=== PATIENT | female | born 2000 | race Hispanic/Latino ===

== ENCOUNTER 2021-05-27 22:47 | Emergency (ER) | payer OTHER, SELFPAY ==
--- NOTE | ~2021-05-27 | CT_ITS ---
EXAMINATION: CTA chest PE protocol DATE: 05/28/2021 00:54 INDICATION: Chest pain TECHNIQUE: Computed tomography angiography (CTA) of the chest was performed with 100 mL Omnipaque-350 intravenous contrast timed to evaluate the pulmonary arteries. Coronal maximum intensity projection 3D-reconstructions were created by the technologist. The dose-length product (DLP) was 225.44 mGy-cm. Automated exposure control and iterative reconstruction technique were employed. COMPARISON: None. FINDINGS: The pulmonary arteries are well-opacified. No pulmonary embolism is identified. The lungs a re free of acute opacities. There is no pleural effusion or pneumothorax. No pathologically enlarged thoracic lymph nodes are identified. The heart size is normal. There is possible myocardial thinning at the left ventricular apex. The visualized osseous structures are unremarkable. IMPRESSION: 1. No pulmonary embolism or acute cardiopulmonary abnormality. 2. Possible myocardial thinning at the left ventricular apex although the study is not gated for eval uation of the heart. Reviewed, dictated and finalized at location A. IMINER IMPRESSION: 1. No pulmonary embolism or acute cardiopulmonary abnormality. 2. Possible myocardial thinning at the left ventricular apex although the study is not gated for evaluation of the heart.
--- NOTE | ~2021-05-27 | XR_ITS ---
EXAMINATION: XR chest 2V DATE: 05/27/2021 23:27 INDICATION: Cough. TECHNIQUE: Frontal and lateral views of the chest were obtained. COMPARISON: None. FINDINGS: The chest demonstrates clear lungs without pneumonia, pleural effusion, or pneumothorax. Th e heart size is normal. IMPRESSION: 1. No acute cardiopulmonary disease. Reviewed, dictated and finalized at location E. STER
[2021-05-27 22:49] VITALS: BP 150/93; PULSE 91; RESP 20; TEMP 36.8; O2SAT 100
--- NOTE | 2021-05-27 23:14 | ECG_ITS ---
Measurements Intervals [place] Rate: 75 P: 15 IN: 148 QRS: 72 QRSD: 77 T: 24 QT: 369 QTc: 415 Interpretive Statements SINUS RHYTHM NORMAL ECG Electronically Signed On 05-28-2021 6:38:22 HANDLE SEWER by Jose G Downing D.O.
--- NOTE | 2021-05-27 23:15 | ED.BACK ---
HPI - Back Pain/Injury General Chief Complaint: Back Pain/Injury <Saúl Villanueva MD - Last Filed: 05/27/21 23:31> Stated Complaint: sob <Saúl Villanueva MD - Last Filed: 05/27/21 23:31> Time Seen by Provider: 05/27/21 23:05 <Saúl Villanueva MD - Last Filed: 05/27/21 23:31> Source: patient <Saúl Villanueva MD - Last Filed: 05/27/21 23:31> Mode of arrival: ambulatory <Saúl Villanueva MD - Last Filed: 05/27/21 23:31> Limitations: no limitations <Saúl Villanueva MD - Last Filed: 05/27/21 23:31> History of Present Illness HPI Narrative: Patient is a 21-year-old female complaining of mid back pain, upper back pain, 8 out of 10, sharp, worse with deep breaths that started today. Patient states that she was short of breath earlier but now resolved. Patient denies any chest pain, abdominal pain, nausea, vomiting, diaphoresis, fever or chills. <Saúl Villanueva MD - Last Filed: 05/27/21 23:31> Related Data Allergies/Adverse Reactions: Allergies Allergy/AdvReac Type Severity Reaction Status Date / Time No Known Allergies Allergy Verified 05/27/21 22:52 <Saúl Villanueva MD - Last Filed: 05/27/21 23:31> Review of Systems Review of Systems: All systems reviewed & are unremarkable except as noted in HPI and below <Saúl Villanueva MD - Last Filed: 05/27/21 23:31> Constitutional: Constitutional: Denies body ache(s), Denies chills, Denies excessive sweating, Denies fatigue, Denies fever(s), Denies headache(s), Denies lethargy, Denies malaise, Denies weakness and Denies weight loss <Saúl Villanueva MD - Last Filed: 05/27/21 23:31> Eyes: Eyes: Denies blurry vision, Denies change in vision and Denies loss of vision <Saúl Villanueva MD - Last Filed: 05/27/21:31> ENT: Denies dizziness, Denies ear discharge, Denies headache(s), Denies lip swelling, Denies epistaxis, Denies nasal congestion, Denies neck pain, Denies throat swelling and Denies tongue swelling <Saúl Villanueva MD - Last Filed: 05/27/21 23:31> Cardiovascular: Cardiovascular: Denies chest pain, Denies chest pain at rest, Denies chest pain with activity, Denies diaphoresis, Denies rapid heart rate, Denies edema, Denies irregular heart rhythm, Denies lightheadedness, Denies palpitations, Denies dyspnea and Denies dyspnea on exertion <aSúl Villanueva MD - Last Filed: 05/27/21:31> Respiratory: Respiratory: Denies chest congestion, Denies cough, Denies hemoptysis, Denies dyspnea and Denies dyspnea on exertion <Saúl Villanueva MD - Last Filed: 05/27/21 23:31> Gastrointestinal: Gastrointestinal: Denies abdominal pain, Denies melena, Denies hematochezia, Denies diarrhea, Denies nausea, Denies vomiting and Denies hematemesis <Saúl Villanueva MD - Last Filed: 05/27/21 23:31> Musculoskeletal: Musculoskeletal: Denies abnormal gait, Denies deformity, Denies joint swelling, Denies limited range of motion, Denies neck pain and Denies numbness <Saúl Villanueva MD - Last Filed: 05/27/21 23:31> Neurologic: Denies Abnormal speech present, Denies abnormal gait, Denies confusion, Denies dizziness, Denies headache(s), Denies focal weakness, Denies loss of vision, Denies numbness, Denies Other visual disturbances, Denies Sensory deficit (Neuro) and Denies weakness <Saúl Villanueva MD - Last Filed: 05/27/21 23:31> Psychiatric: Psychiatric: Denies confusion, Denies depression, Denies auditory hallucinations, Denies homicidal ideation and Denies suicidal ideation <Saúl Villanueva MD - Last Filed: 05/27/21 23:31> Endocrine: Endocrine: Denies cold intolerance, Denies excessive sweating, Denies fatigue, Denies heat intolerance and Denies palpitations <Saúl Villanueva MD - Last Filed: 05/27/21 23:31> Hematologic/Lymphatic: Hematologic/Lymphatic: Denies easy bleeding and Denies easy bruising <Saúl Villanueva MD - Last Filed: 05/27/21 23:31> Allergic/Immunologic: Allergic/Immunologic: Denies l
[2021-05-27] MEDS: IBUPROFEN 400 MG TABLET 800 MG PO (23:46)
[2021-05-27] MEDS: ACETAMINOPHEN 325 MG TABLET 650 MG PO (23:47)
[2021-05-27 23:51] LABS: Basophils Absolute Auto 0.1 K/mm3 (0.0-0.1); Basophils Percent Auto 0.6 % (0.2-1.2); Eosinophils Absolute Auto 0.4 K/mm3 (0-0.3); Eosinophils Percent Auto 4.4 % (0-4.4); Hematocrit 38.2 % (37.0-47.0); Hemoglobin 12.6 g/dL (12.0-15.0); Immature Granulocyte Absolute 0.02 K/mm3 (0.00-0.031); Immature Granulocyte Percent A 0.3 % (0-0.5); Lymphocytes Absolute Auto 2.87 K/mm3 (0.9-3.2); Mean Corpuscular Hemoglobin 29.7 pg (26-34); Mean Corpuscular Volume 90.1 fl (80-100); Monocytes Absolute Auto 0.6 K/mm3 (0.1-0.6); Monocytes Percent Auto 7.1 % (2.6-8.5); Neutrophils Absolute Auto 4.1 K/mm3 (1.3-6.7); Neutrophils Percent Auto 51.6 % (45.5-73.1); Platelet Count Result 312 k/mm3 (150-375); Red Blood Count 4.24 M/mm3 (4.2-5.4); Red Cell Distribution Width 13.2 % (11.5-14.5)
[2021-05-28 00:11] LABS: Alanine Aminotransferase 24 U/L (4-35); Albumin Level 4.8 g/dL (3.5-5.1); Alkaline Phosphatase 73 U/L (38-126); Anion Gap 15 mmol/L (8-16); Aspartate Amino Transferase 41 U/L (14-36); Bilirubin,Total 0.3 mg/dL (0.2-1.3); Blood Urea Nitrogen 10 mg/dL (7-17); Calcium 9.2 mg/dL (8.4-10.2); Carbon Dioxide 23 mmol/L (22-30); Chloride 101 mmol/L (98-107); Estimated CRCL calculation 91 ml/min; Estimated Glomerular Filt Rate > 60; Glucose 92 mg/dL (65-110); Potassium 3.7 mmol/L (3.4-5.0); Sodium 139 mmol/L (137-145)
[2021-05-28 00:19] LABS: D Dimer 0.62 ug/mL (<0.48)
[2021-05-28 00:23] LABS: Troponin I < 0.012 ng/mL (0.000-0.034)
[2021-05-28 00:30] VITALS: BP 133/74; PULSE 72; RESP 16; O2SAT 100
== END 2021-05-28 02:45 | disposition home or self-care (01) ==
PROVIDERS: Emergency Provider Emergency Medicine
DX: R09.1 Pleurisy (principal); I51.7 Cardiomegaly
CPT/HCPCS: 36415; 71046; 71275; 80053; 81025; 84484; 85025; 85380; 85610; 85730; 93005; 99284; A9270; Q9967

== ENCOUNTER 2022-06-23 01:16 | Emergency (ER) | payer OTHER, SELFPAY ==
[2022-06-23 01:19] VITALS: PULSE 88; RESP 20; TEMP 36.7; O2SAT 99
--- NOTE | 2022-06-23 01:33 | ED.GENADULT ---
HPI - General Adult General Chief complaint: Unspecified Stated complaint: sore throat Time Seen by Provider: 06/23/22 01:29 History of Present Illness HPI narrative: 22-year-old female here for evaluation of foreign body sensation in throat x 1 hour. Patient states she was eating a slice of pizza and while swallowing she felt a sharp sensation in the left side of her throat. Since then she has had pain with swallowing. She is able to tolerate her secretions and oral intake. She tried eating a banana but this did not help. No other symptoms. Denies history of previous similar sensation. Related Data Allergies Allergy/AdvReac Type Severity Reaction Status Date / Time No Known Allergies Allergy Verified 05/27/21 22:52 Review of Systems Review of Systems: Gen.: Denies fevers or chills Eyes: Denies eye pain or visual change ENT: Reports sore throat Respiratory: Denies shortness of breath or cough CV: Denies chest pain or palpitations GI: Denies abdominal pain nausea, emesis or diarrhea denies burning, urgency, frequency or hematuria Musculoskeletal: Denies back pain or muscle pain Neuro: Denies numbness, tingling, weakness or focal weakness Skin: Denies rash Except as documented, all other systems reviewed and negative PMFSH Social History Social History (Updated 05/27/21 @ 23:14 by Charli Kamara RN) Alcohol intake: never Substance use: never Exam Narrative: APPEARANCE: Well appearing, no pain in distress, well-nourished. Head: Normocephalic and atraumatic. EYES: PERRLA/EOMI, conjunctivae clear NOSE: No nasal drainage EARS: External ear normal in appearance THROAT: cryptic tonsils bilaterally but no exudates or tonsil stones noted. No uvular deviation NECK: Slight tenderness to palpation along the lateral aspect of the left neck. supple. No adenopathy, no masses. RESPIRATORY: Airway patent, respirations nonlabored. Clear to auscultation bilaterally, no rales, rhonchi, wheezing. CARDIOVASCULAR: Regular rate and rhythm without murmurs, rubs, or gallops. ABDOMINAL: Normoactive bowel sounds. Soft, nontender, nondistended. No rebound tenderness or guarding. MUSCULOSKELETAL: Extremities are warm and well-perfused. Moves all extremities well. No edema. NEURO: Normal speech. No focal neurologic deficits. SKIN: Skin is warm and dry. No rashes. PSYCHIATRIC: Normal affect/mood. Course Vital Signs Vital signs: Vital Signs Temperature 98.1 F 06/23/22 01:19 Pulse Rate 88 06/23/22 01:19 Respiratory Rate 20 06/23/22 01:19 Pulse Oximetry 99 06/23/22 01:19 Oxygen Delivery Room Air 06/23/22 01:19 Temperature 98 F 06/23/22 02:52 Pulse Rate 69 06/23/22 02:52 Respiratory Rate 18 06/23/22 02:52 Blood Pressure 118/69 06/23/22 02:52 Pulse Oximetry 99 06/23/22 02:52 Oxygen Delivery Room Air 06/23/22 01:19 Medical Decision Making MDM Narrative Medical decision making narrative: 22-year-old female here for evaluation of foreign body sensation in her throat after eating a slice of pizza tonight. She is nontoxic in appearance, tolerating her secretions and p.o. No abnormalities noted on exam aside from cryptic tonsils. She was given a sandwich and tolerated this but the sensation and pain remained. Patient was given IM Decadron with improvement of her symptoms. Unclear etiology of globus sensation, but it is reassuring that she is tolerating p.o. Possible Zenker diverticulum. Appearance of tonsils and sudden onset does not suggest infection; she has full range of motion in her neck and doubt RTA or DIRECTOR MARKETING. She is agreeable with plan for outpatient GI follow-up if her symptoms persist. Return precautions were discussed and she voiced understanding Vital Signs Vital Signs: Vital Signs Temperature 98.1 F 06/23/22 01:19 Pulse Rate 88 06/23/22 01:19 Respiratory Rate 20 06/23/22 01:19 Pulse Oximetry 99 06/23/22 01:19 Oxygen Delivery Room Air 06/23/22 01:19 Tem
[2022-06-23 02:52] VITALS: BP 118/69; PULSE 69; RESP 18; TEMP 36.6; O2SAT 99
== END 2022-06-23 02:52 | disposition home or self-care (01) ==
PROVIDERS: Emergency Provider Emergency Medicine; PCP Emergency Medicine
DX: R09.89 Other specified symptoms and signs involving the circulatory and respiratory systems (principal)
CPT/HCPCS: 96372; 99283; J1100

== ENCOUNTER 2023-04-27 13:48 | Outpatient (CLI) | payer OTHER, SELFPAY ==
--- NOTE | 2023-04-27 | ECHO_ITS ---
Patient Info Name: Rashmi Doshi Age: 23 years : 2000 Gender: Female Ht: 65 in Wt: 151 lbs BSA: 1.78 m2 HR: 82 bpm BP: 145 / 83 mmHg Heart Rhythm: Sinus Rhythm Technical Quality: Good Exam Date: 04/27/2023 2:06 PM Exam Location: Echo Lab Patient Status: Outpatient Admit Date: 04/27/2023 Staff Ordering Physician: ClaudioKasandra DO Neurosurgery Research Director: Lelia Austin RDCS Attending Provider: Claudio, Kasandra Aguilar DO Referring Physician: MEL, Ward; Exam Type: CA echo doppler color flow Study Info Indications R01.1 - Cardiac murmur, unspecified Complete two-dimensional, color flow and Doppler transthoracic echocardiogram is performed. Summary 1. Complete two-dimensional, color flow and Doppler transthoracic echocardiogram is performed. 2. Left ventricular chamber dimension is normal. 3. Left ventricular systolic function is hyperdynamic, estimated at >70%. 4. There is no increased left ventricular wall thickness. 5. The left ventricular diastolic function is normal. 6. Left atrial chamber dimension is normal. 7. Right atrial chamber dimension is borderline mildly enlarged. 8. Right ventricular chamber dimension is normal. 9. Right ventricular systolic function is normal. 10. There is no aortic valve stenosis. 11. There is no mitral valve regurgitation. 12. There is trace tricuspid valve regurgitation. 13. No pulmonary hypertension, estimated pulmonary arterial systolic pressure is 25 mmHg. Left Ventricle Left ventricular chamber dimension is normal. Left ventricular systolic function is hyperdynamic, estimated at >70%. There is no increased left ventricular wall thickness. The left ventricular diastolic function is normal. Right Ventricle Right ventricular chamber dimension is normal. Right ventricular systolic function is normal. Left Atria Left atrial chamber dimension is normal. Right Atria Right atrial chamber dimension is borderline mildly enlarged. Aortic Valve The aortic valve is not well visualized. There is no aortic valve stenosis. There is no aortic valve regurgitation. Pulmonic Valve The pulmonic valve is not well visualized. There is trace pulmonic regurgitation. Mitral Valve The mitral valve has normal leaflets. There is no mitral valve regurgitation. Tricuspid Valve The tricuspid valve leaflets are normal. There is trace tricuspid valve regurgitation. No pulmonary hypertension, estimated pulmonary arterial systolic pressure is 25 mmHg. Pericardium/Pleural The pericardium appears normal. There is no pericardial effusion. Inferior Vena Cava Normal inferior vena cava with >50% collapse upon inspiration consistent with normal right atrial pressure, 5 mmHg. Aorta The aortic root size at the sinus of Valsalva is normal. The prox ascending aorta size is normal. Left Ventricular Outflow Tract Name Value Normal LVOT 2D LVOT Diameter 2.0 cm LVOT Doppler LVOT Peak Gradient 5 mmHg LVOT Mean Gradient 3 mmHg LVOT VTI 21 cm LVOT VTI/AV VTI Ratio 0.8 LVOT Stroke Volume 64 ml
== END 2023-04-27 13:49 | disposition home or self-care (01) ==
LOC: ANHCARD 13:50
DX: R01.1 Cardiac murmur, unspecified (principal)
CPT/HCPCS: 93306

== ENCOUNTER 2023-11-03 03:48 | Emergency (ER) | payer OTHER, SELFPAY ==
[2023-11-03 03:54] VITALS: PULSE 87; RESP 20; TEMP 36.7; O2SAT 100
== END 2023-11-03 03:59 | disposition left against medical advice (07) ==
LOC: ANHED 04:11
DX: R33.9 Retention of urine, unspecified (principal)
CPT/HCPCS: 99199

== ENCOUNTER 2025-01-12 11:43 | Emergency (ER) | payer OTHER, SELFPAY ==
--- NOTE | ~2025-01-12 | CT_ITS ---
EXAMINATION: CT abdomen pelvis wo con DATE: 01/12/2025 13:21 INDICATION: Flank and lower abdominal pain with dysuria TECHNIQUE: Computed tomography (CT) of the abdomen and pelvis was performed without intravenous contrast. Automated exposure control and iterative reconstruction technique were employed. The dose-length product was 308.07 mGy-cm. COMPARISON: None FINDINGS: Lung bases are clear. Heart size is normal. No pericardial or pleural effusion. Liver, gallbladder, spleen, pancreas and bilateral adrenal glands are normal. Kidneys and ureters are normal with no urolithiasis, hydroureteronephrosis or perinephric/ureteral stranding. Bladder, uterus and bilateral adnexa are unremarkable. Bowels including the appendix are normal. No free intraperitoneal gas or fluid. No pathologically enlarged abdominal or pelvic lymphadenopathy. Very small fat-containing umbilical hernia. Mild lumbar levocurvature. IMPRESSION: 1. No urolithiasis or acute intra-abdominal/pelvic process. Reviewed, dictated and finalized at location A.
[2025-01-12 11:54] VITALS: BP 152/96; PULSE 106; RESP 14; TEMP 37; O2SAT 100
--- OUTSIDE RECORDS SUMMARY | 2025-01-12 12:05 | XMS_ITS | Clinical Summary ---
Author Organization [facility] Address [address] [place] [id number] Care Team Providers Care Lane Marker Installer Name Role Phone Kasandra Hopper NP Primary Care Provider [phone] Allergies No known active allergies Medications No known medications Active Problems Problem Noted Date Diagnosed Date Heart murmur 07/04/2023 Encounters Date Type Department Care Team Description 11/17/2024 Telephone [facility] [address] [facility] [address] [place] [id number] Amada Garcia, PAPER STEAMER No Show 11/10/2024 9:45 AM CDT Office Visit [facility] [address] [facility] [address] [place] [address] Kasandra Hopper, Chanda Michel, PT Cerv Pain 11/10/2024 Travel from Last 3 Months Family History Medical History Relation Comments No Known Problems Father No Known Problems Maternal Grandfather No Known Problems Maternal Grandmother No Known Problems Mother No Known Problems Paternal Grandfather No Known Problems Paternal Grandmother Relation Status Comments Father Alive Maternal Grandfather Alive Maternal Grandmother Mother Alive Paternal Grandfather Paternal Grandmother Social History Tobacco Use Types Packs/Day Years Used Date Smoking Tobacco: Never Passive Smoke Exposure: Never Smokeless Tobacco: Never Alcohol Use Standard Drinks/Week Comments Yes 0 (1 standard drink = 0.6 oz pur e alcohol) socially Comments Unknown Sex and Gender Information Value Date Recorded Sex Assigned at Not on file 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 Gender Identity Not on file Sexual Orientation Not on file Last Filed Vital Signs Vital Sign Reading Time Taken Comments Blood Pressure 114/80 11/12/2023 9:24 AM CDT Pulse 74 11/12/2023 9:24 AM CDT Temperature - - Respiratory Rate - - Oxygen Saturation 98% 11/12/2023 9:24 AM CDT Inhaled Oxygen Concentration - - Weight 67.9 kg (149 lb 12.8 oz) 11/12/2023 9:24 AM CDT Height 162.6 cm (5' 4) 11/12/2023 9:24 AM CDT Body Mass Index 25.71 11/12/2023 9:24 AM CDT Plan of Treatment Health Maintenance Due Date Last Done Comments Cervical Cancer Screening Pa p Smear (Age 21 to 29) Every 3 Years 2001 Cervical Cancer Screening 2001 Annual Physical 2004 Hepatitis C 2019 COVID-19 Vaccine (3 - 2024-2 6 season) 2024 04/19/2021, 12/23/2020 DTaP, Tdap and Td Vaccines ( 4 - Td or Tdap) 11/23/2026 11/23/2016, 04/18/2016, 03/15/2016 Hepatitis B Vaccines Completed 07/06/2016, 04/18/2016, 03/15/2016 HPV Vaccines Completed 06/12/2018, 01/11/2017, 11/23/2016 Meningococcal Vaccine Completed 06/12/2018 , 03/15/2016 Meningococcal B Vaccine Completed 08/01/19 19, 06/12/2018 Pneumococcal Vaccine: Pediatrics (0 to 5 Years) and At-Risk Patients (6 to 49 Years) Aged Out No longer eligible b ased on patient's age to complete this topic RSV Immunizations Under 20 Months Aged Out No longer eligible b ased on patient's age to complete this topic Insurance [employer] Care Teams Lane Marker Installer Relationship Specialty Start Date End Date Kasandra Hopper NP [address] [place] [address] [place] [phone] PCP - General NURSE PRACTITIONER 05/22/23
--- OUTSIDE RECORDS SUMMARY | 2025-01-12 12:05 | XMS_ITS | Clinical Summary ---
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 Gender Identity Not on file Sexual Orientation Not on file Plan of Treatment Health Maintenance Due Date Last Done Comments Pap Smear 2001 Depression Screening 2013 COVID-19 Vaccine ( season) 2024 04/24/2021, 12/23/2020 Influenza Vaccine (#1) 2024 DTaP,Tdap,and Td Vaccines (4 - Td or Tdap) 11/23/2026 11/23/2016, 04/18/2016, 03/15/2016 RSV Vaccines and 60 Years or Older (1 - 1-dose 75+ series) 2076 MMR Vaccines Completed 04/18/2016, 03/15/2016 Varicella Vaccines Completed 04/18/2016, 03/15/2016 Hepatitis B Vaccines Completed 07/06/2016, 04/18/2016, 03/15/2016 IPV Vaccines Completed 01/11/2017, 06/15, 04/18/2016, Additional history exists HPV Vaccines Completed 06/12/2018, 12/16, 11/23/2016 Hepatitis A Vaccines Completed 06/12/2018, 11/24/19 Meningococcal ACWY Vaccine Completed 06/12/2018, Meningococcal B Vaccine Completed 07/31/2018, 06/12 AMB Pneumococcal 0-49 yrs Aged Out No longer eligible based on patient's age to complete this topic HIB Vaccines Aged Out No longer eligi ble based on patient's age to complete this topic RSV Vaccines <20 Months Aged Out No l onger eligible based on patient's age to complete this topic Insurance ([facility]) [employer] [facility] [employer] Care Teams Pocket Builder Relationship Specialty Start Date End Date Mariah Ricardo NP PCP - General Nurse Practitioner Family 08/22/22
[2025-01-12 12:07] LABS: BEDSIDEPREGUCG Negative (Negative)
[2025-01-12 12:14] LABS: Add Urine Microscopic? YES; Appearance Urine Turbid (Clear); Glucose Urine UA Negative (Negative); Leukocyte Esterase Ur 3+ LEU/UL (Negative); Nitrate Urine Negative (Negative); Non Pathogenic Casts 0-2; Specific Grav Ur 1.011 (1.001-1.035)
[2025-01-12] MEDS: SODIUM CHLORIDE 0.9% IV 1,000 ML 999 ML IV CONT (12:54)
[2025-01-12] MEDS: MORPHINE SULFATE (*CRX) 4 MG/ML INJ IV PUSH (12:55)
[2025-01-12] MEDS: ONDANSETRON INJ 4 MG/2 ML VIAL IV PUSH (12:55)
[2025-01-12 13:02] LABS: Hematocrit 41.0 % (37.0-47.0); Hemoglobin 13.3 g/dL (12.0-15.0); Immature Granulocyte Percent A 0.3 % (0-0.5); Lymphocytes Absolute Auto 1.64 K/mm3 (0.9-3.2); Mean Corpuscular HGB Conc 32.4 g/dl (32-36); Mean Corpuscular Hemoglobin 29.4 pg (26-34); Mean Corpuscular Volume 90.5 fl (80-100); Nucleated Red Blood Cells Absolute Auto 0.000 K/mm3 (0.0-0.012); Nucleated Red Blood Cells Perc 0.0 % (0.0-0.2); Platelet Count Result 331 k/mm3 (150-375); Red Blood Count 4.53 M/mm3 (4.2-5.4); White Blood Count 11.5 K/mm3 (4.5-10.0)
--- NOTE | 2025-01-12 13:21 | ED_ITS ---
HPI - General Adult General Chief complaint: Urogenital-Female Stated complaint: left flank pain, painful urination, chills Time Seen by Provider: 01/12/25 12:08 History of Present Illness HPI narrative: Patient is a 24-year-old female who presents ER with concerns for UTI. Began having dysuria 2 days ago. Associated with urinary urgency and frequency. She does not feel like she is emptying completely. She has began to have achy discomfort in her back bilaterally. No fevers but does have chills. Related Data Allergies Allergy/AdvReac Type Severity Reaction Status Date / Time No Known Allergies Allergy Verified 01/12/25 12:04 Review of Systems 2 Review of Systems: All systems reviewed & are unremarkable except as noted in HPI and below Constitutional: Constitutional: Reports no additional constitutional complaints Cardiovascular: Cardiovascular: Reports no additional cardiovascular complaints Respiratory: Respiratory: Reports no additional respiratory complaints Gastrointestinal: Gastrointestinal: Reports no additional gastrointestinal complaints Genitourinary: Genitourinary: Reports no additional female genitourinary complaints [facility] Past Medical History Medical History (Updated 01/12/25 @ 14:09 by Charli Ontiveros MD) Healthy female adult Surgical History Surgical History (Updated 01/12/25 @ 14:04 by Charli Ontiveros MD) No history of previous surgery Social History Social History (Updated 05/27/21 @ 23:14 by Charli Kamara RN) Alcohol intake: never Substance use: never Exam 2 Narrative: GENERAL: Well-appearing, well-nourished, and in no acute distress. HEAD: Normocephalic, atraumatic. ENT: Mucous membranes moist. CHEST: Clear to auscultation. No respiratory distress. HEART: Tachycardic and regular. Normal peripheral pulses. ABDOMEN: Soft, nontender, nondistended, bilateral CVA tenderness EXTREMITIES: Normal range of motion. No edema. SKIN: Warm, dry, no rash. NEURO: Alert and oriented x3. PSYCH: Normal mood and affect. Course Course Emergency Course: Patient informed of lab and imaging results. Discharge home with oral antibiotics for pyelonephritis. Will also provide antiemetics. Mild leukocytosis. Urinalysis was significant elevation white blood cells and leukocyte esterase microscopic hematuria. Vital Signs Vital signs: Vital Signs Temperature 98.6 F 01/12/25 11:54 Pulse Rate 106 H 01/12/25 11:54 Respiratory Rate 14 01/12/25 11:54 Blood Pressure 152/96 H 01/12/25 11:54 Pulse Oximetry 01/12/25 11:54 Oxygen Delivery Room Air 01/12/25 11:54 Temperature 98.6 F 01/12/25 11:54 Pulse Rate 106 H 01/12/25 11:54 Respiratory Rate 14 01/12/25 11:54 Blood Pressure 152/96 H 01/12/25 11:54 Pulse Oximetry 01/12/25 11:54 Oxygen Delivery Room Air 01/12/25 11:54 Medical Decision Making Vital Signs Vital Signs: Vital Signs Temperature 98.6 F 01/12/25 11:54 Pulse Rate 106 H 01/12/25 11:54 Respiratory Rate 14 01/12/25 11:54 Blood Pressure 152/96 H 01/12/25 11:54 Pulse Oximetry 01/12/25 11:54 Oxygen Delivery Room Air 01/12/25 11:54 Temperature 98.6 F 01/12/25 11:54 Pulse Rate 106 H 01/12/25 11:54 Respiratory Rate 14 01/12/25 11:54 Blood Pressure 152/96 H 01/12/25 11:54 Pulse Oximetry 01/12/25 11:54 Oxygen Delivery Room Air 01/12/25 11:54 Lab Data 01/12/25 12:50 01/12/25 12:50 Labs: Lab Results 01/12/25 01/12/25 01/12/25 Range/Units 12:02 12:05 12:50 WBC 11.5 H (4.5-10.0) K/mm3 RBC 4.53 (4.2-5.4) M/mm3 Hgb 13.3 (12.0-15.0) g/dL Hct 41.0 (37.0-47.0) % MCV 90.5 (80-100) fl MCH 29.4 (26-34) pg MCHC 32.4 (32-36) g/dl RDW 12.9 (11.5-14.5) % Plt Count 331 (150-375) k/mm3 MPV 10.1 (7.4-10.4) fl Immature Gran % (Auto) 0.3 (0-0.5) % Neut % (Auto) 79.7 H (45.5-73.1) % Lymph % (Auto) 14.3 L (18.3-44.2) % [place] % (Auto) 4.8 (2.6-8.5) % Eos % (Auto) 0.6 (0-4.4) % Baso % (Auto) 0.3 (0.2-1.2) % Lymph # (Auto) 1.64 (0.9-3.2) K/mm3 [place] # (Auto) 0.6 (0.1-0.6) K/mm3 Eos # (Auto) 0.1 (0-0.3) K/mm3 Baso # (Auto) 0.0 (0.0-0.1) K/mm3 Abs Immat Gran (auto) 0.03 (0.00-0.031) K/mm3 Absolute Neuts (auto) 9.2 H (1.3-6.7) K/mm3 Absolute Nucleated RBC 0.000 (0.0-0.012) K/mm3 Nucleated RBC % 0.0 (0.0-0.2) % Sodium 138 (137-145) mmol/L Potassium 3.8 (3.4-5.0) mmol/L Chloride 102 (98-107) mmol/L Carbon Dioxide 25 (22-30) mmol/L Anion Gap 11 (4-12) mmol/L BUN 11 (7-17) mg/dL Creatinine 0.66 L (0.7-1.0) mg/dL Estim Creat Clear Calc 98 ml/min Estimated GFR > 60 (59 - ) Glucose 94 (65-110) mg/dL Calcium 9.1 (8.4-10.2) mg/dL Total Bilirubin 0.3 (0.2-1.3) mg/dL AST 40 H (14-36) U/L ALT 24 (6-35) U/L Alkaline Phosphatase 85 (38-126) U/L Total Protein 9.1 H (6.3-8.2) g/dL Albumin 4.8 (3.5-5.1) g/dL Urine Color Yellow (Yellow) Urine Appearance Turbid H (Clear) Urine pH 5.5 (5.0-9.0) Ur Specific [place] 1.011 (1.001-1.035) Urine Protein 2+ H (Negative) mg/dL Urine Glucose (UA) Negative (Negative) mg/dL Urine Ketones Negative (Negative) mg/dL Ur Blood (Man) 3+ H (Negative) Urine Nitrate Negative (Negative) Urine Bilirubin Negative (Negative) Urine Urobilinogen 0.2 (<2.0) mg/dL Leukocyte Esterase Rfl 3+ H (Negative) JESSICA/UL Urine RBC 51-100 H (0-2) /hpf Urine WBC >100 H (0-3) /hpf Ur Squamous Epith Cells None seen (Few) /hpf Urine Bacteria None seen /hpf Urine Casts 0-2 POC Urine HCG, Qual Negative (Negative) Imaging Data Radiologist's impression: ITS Impressions Abdomen/Pelvis CT 01/12/25 13:27 IMPRESSION: 1. No urolithiasis or acute intra-abdominal/pelvic process. Discharge Plan Discharge Clinical Impression: Pyelonephritis Patient Disposition: Home Condition: Stable Instructions: Antibiotic Form, Kidney Infection (ED) Additional Instructions: You should return to the emergency department if you develop severe nausea and vomiting and are unable to keep liquids down, if you develop severe back/flank or stomach pain, or if your symptoms are not clearly improving at home. Patient Language: Frisian Prescriptions: New cefpodoxime 200 mg tablet 200 mg PO BID Qty: 20 0RF Rx Instructions: must administer with a meal/food ondansetron 4 mg tablet,disintegrating 4 mg PO Q6H PRN (Reason: nausea and vomiting) Qty: 10 0RF No Action naproxen 375 mg tablet 375 mg PO BID Qty: 14 0RF Follow-up/Referrals: UNKNOWN,DOCTOR [Primary Care Provider] - 1 Week
[2025-01-12 13:23] LABS: Alanine Aminotransferase 24 U/L (6-35); Albumin Level 4.8 g/dL (3.5-5.1); Alkaline Phosphatase 85 U/L (38-126); Anion Gap 11 mmol/L (4-12); Aspartate Amino Transferase 40 U/L (14-36); Bilirubin,Total 0.3 mg/dL (0.2-1.3); Blood Urea Nitrogen 11 mg/dL (7-17); Calcium 9.1 mg/dL (8.4-10.2); Carbon Dioxide 25 mmol/L (22-30); Chloride 102 mmol/L (98-107); Estimated CRCL calculation 98 ml/min; Estimated Glomerular Filt Rate > 60; Glucose 94 mg/dL (65-110); Potassium 3.8 mmol/L (3.4-5.0); Sodium 138 mmol/L (137-145); Total Protein 9.1 g/dL (6.3-8.2)
== END 2025-01-12 14:19 | disposition home or self-care (01) ==
PROVIDERS: General Practice; Emergency Provider Emergency Medicine
DX: N12 Tubulo-interstitial nephritis, not specified as acute or chronic (principal)
CPT/HCPCS: 36415; 74176; 80053; 81001; 81025; 85025; 87086; 87186; 96361; 96374; 96375; 99284; J2270; J2405; J7030